=== PATIENT | male | born 1985 | race Caucasian/White ===

== ENCOUNTER 2019-08-23 13:42 | Emergency (ER) | payer OTHER ==
[2019-08-23 14:06] VITALS: BP 113/75; PULSE 83; TEMP 98.2; BMI 19.6
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
== END 2019-08-23 17:30 | disposition left against medical advice (07) ==
LOC: JER 13:42
DX: S09.8XXA Other specified injuries of head, initial encounter (principal); R51 Headache; M25.532 Pain in left wrist; V43.52XA Car driver injured in collision with other type car in traffic accident, initial encounter; Y92.414 Local residential or business street as the place of occurrence of the external cause; Y93.89 Activity, other specified; Y99.8 Other external cause status
CPT/HCPCS: 99281-25